=== PATIENT | female | born 1955 | race Caucasian/White ===

== ENCOUNTER → 2024-06-10 09:31 | Outpatient (REF) | payer MEDICARE, BC, SELFPAY | LOC: HWWDC 09:31 | PROVIDERS: ATTENDING PHYSICIAN Obstetrics & Gynecology Gynecology; FAMILY PHYSICIAN Family Medicine; REFERRING PHYSICIAN Internal Medicine Rheumatology | DX: R29.890 Loss of height (principal); Z12.31 Encounter for screening mammogram for malignant neoplasm of breast | CPT/HCPCS: 72070; 72100; 77063; 77067 ==